=== PATIENT | female | born 1980 | race Caucasian/White ===

== ENCOUNTER 2019-02-05 15:26 | Observation (INO) | payer BC ==
[~2019-02-05] VITALS: Ht 160 cm; Wt 53.6 kg
[~2019-02-05 15:26] MED LIST: vancomycin 250MG/10ML UD oral solution 10ML BOTTLE PO ONE
[2019-02-05] MEDS ORDERED: ondansetron/PF 4mg/2ml inj IV ONE ×2 (16:00→17:55)
[2019-02-05] MEDS ORDERED: normal saline 1000ML IV soln IVB ONE ×2 (16:00→17:55)
[2019-02-05 17:08] LABS: BASOPHILS % (AUTO) 0.2 % (0-1); EOSINOPHILS % (AUTO) 0.2 % (0-6); HEMATOCRIT 36.8 % (35.0-45.0); HEMOGLOBIN 12.7 g/dl (12.0-16.0); LYMPHOCYTES # (AUTO) 0.7 X10'3 (1.1-4.8); LYMPHOCYTES % (AUTO) 4.5 % (21-51); MEAN CORPUSCULAR HEMOGLOBIN 33.2 PG (27.0-31.0); MEAN CORPUSCULAR HGB CONC 34.4 g/dL (33.0-36.5); MEAN CORPUSCULAR VOLUME 96.6 FL (78-98); MEAN PLATELET VOLUME 8.9 FL (7.4-10.4); MONOCYTES # (AUTO) 1.4 X10'3 (0-0.9); MONOCYTES % (AUTO) 9.4 % (2-12); NEUTROPHILS # (AUTO) 12.7 X10'3 (1.8-7.7); NEUTROPHILS % (AUTO) 85.7 % (42-75); PLATELET COUNT 275 X10'3 (140-440); RED BLOOD COUNT 3.81 X10'6 (4.20-5.60); RED CELL DISTRIBUTION WIDTH 11.9 % (11.5-14.5); WHITE BLOOD COUNT 14.8 X10'3 (4.5-11.0)
[2019-02-05 17:17] LABS: ALANINE AMINOTRANSFERASE 32 U/L (12-78); ALBUMIN 3.5 G/DL (3.4-5.0); ALKALINE PHOSPHATASE 85 IU/L (46-116); ANION GAP 11 (8-16); ASPARTATE AMINO TRANSFERASE 20 U/L (10-37); BILIRUBIN,TOTAL 1.3 MG/DL (0.1-1.0); BLOOD UREA NITROGEN 9 MG/DL (7-18); CALCIUM 7.9 MG/DL (8.5-10.1); CHLORIDE 99 MMOL/L (99-107); CREATININE 0.82 MG/DL (0.40-0.90); GLUCOSE 133 MG/DL (70-104); LIPASE 81 U/L (73-393); POTASSIUM 3.9 MMOL/L (3.5-5.1); SODIUM 132 MMOL/L (135-145); TOTAL CARBON DIOXIDE 22.3 MMOL/L (24-32); TOTAL PROTEIN 6.9 G/DL (6.4-8.2); eGFR 78 ML/MIN
[2019-02-05] MEDS ORDERED: acetaminophen 325mg tablet PO ONE (17:55)
[2019-02-05] MEDS ORDERED: normal saline 1000ML IV soln IV ONE (18:55)
[2019-02-05] MEDS ORDERED: NO HOME MEDS (19:18)
[2019-02-05 19:20] LABS: CLARITY,URINE CLEAR (Clear); COLOR,URINE STRAW (Yellow); GLUCOSE, URINE NEGATIVE (Neg); KETONES,URINE NEGATIVE (Neg); LEUKOCYTE ESTERASE ,URINE NEGATIVE (Neg); NITRITES, URINE NEGATIVE (Neg); OCCULT BLOOD,URINE NEGATIVE (Neg); PROTEIN,URINE NEGATIVE (Neg); UROBILINOGEN,URINE 0.2 E.U/dL (0.2-1.0)
[2019-02-05 19:21] LABS: URINE HCG NEGATIVE (NEG)
[2019-02-05 19:24] LABS: UA COLLECTION TYPE CLN CATCH MIDSTREAM
--- NOTE | 2019-02-05 19:28 | NUR ---
LAB AT BEDSIDE FOR SECOND CULTURE
--- NOTE | 2019-02-05 19:40 | NUR ---
PT TO CT VIA WHEELCHAIR
[2019-02-05] MEDS ORDERED: vancomycin 250MG/10ML UD oral solution 10ML BOTTLE PO ONE (21:15)
[2019-02-05] MEDS ORDERED: magnesium hydroxide 30ml (MOM) UD suspension PO PRN (21:55)
[2019-02-05] MEDS ORDERED: acetaminophen 325mg tablet PO PRN (21:55)
--- NOTE | 2019-02-05 22:28 | NUR ---
Report received from Maryjo in the ER. Pt arrived on the unit via wheelchair. Pt ambulatory and able to transfer to bed by foot. VSS. Sister at bedside. Pt has no signs of distress, will continue to monitor.
[2019-02-05] MEDS: normal saline 1000ml 1,000 ML IV SCH (23:35)
[2019-02-05 23:46] VITALS: BP 107/70
[2019-02-06] MEDS: vancomycin 250MG/10ML UD oral solution 10ML BOTTLE PO SCH ×2 (02:59→08:52)
[2019-02-06 06:00] VITALS: BP 91/54
--- NOTE | 2019-02-06 06:50 | NUR ---
Problems reprioritized. Patient report given, questions answered & plan of care reviewed with Madyson VEGA.
[2019-02-06 07:10] LABS: BASOPHILS % (AUTO) 0.3 % (0-1); EOSINOPHILS # (AUTO) 0.2 X10'3 (0-0.9); EOSINOPHILS % (AUTO) 1.3 % (0-6); HEMATOCRIT 31.2 % (35.0-45.0); HEMOGLOBIN 10.8 g/dl (12.0-16.0); LYMPHOCYTES # (AUTO) 1.8 X10'3 (1.1-4.8); LYMPHOCYTES % (AUTO) 14.2 % (21-51); MEAN CORPUSCULAR HEMOGLOBIN 33.3 PG (27.0-31.0); MEAN CORPUSCULAR HGB CONC 34.6 g/dL (33.0-36.5); MEAN CORPUSCULAR VOLUME 96.4 FL (78-98); MEAN PLATELET VOLUME 9.2 FL (7.4-10.4); MONOCYTES # (AUTO) 1.6 X10'3 (0-0.9); MONOCYTES % (AUTO) 13.2 % (2-12); NEUTROPHILS # (AUTO) 8.9 X10'3 (1.8-7.7); PLATELET COUNT 225 X10'3 (140-440); RED BLOOD COUNT 3.24 X10'6 (4.20-5.60); RED CELL DISTRIBUTION WIDTH 12.1 % (11.5-14.5); WHITE BLOOD COUNT 12.5 X10'3 (4.5-11.0)
[2019-02-06 07:40] LABS: ALANINE AMINOTRANSFERASE 26 U/L (12-78); ALBUMIN 2.5 G/DL (3.4-5.0); ALBUMIN/GLOBULIN RATIO 0.9 (1.1-1.5); ANION GAP 10 (8-16); ASPARTATE AMINO TRANSFERASE 18 U/L (10-37); BILIRUBIN,TOTAL 0.8 MG/DL (0.1-1.0); BLOOD UREA NITROGEN 4 MG/DL (7-18); BUN/CREATININE RATIO 6.1 (6.6-38.0); CALCIUM 7.3 MG/DL (8.5-10.1); CHLORIDE 114 MMOL/L (99-107); CREATININE 0.66 MG/DL (0.40-0.90); GLUCOSE 86 MG/DL (70-104); SODIUM 144 MMOL/L (135-145); TOTAL PROTEIN 5.3 G/DL (6.4-8.2); eGFR > 90 ML/MIN
[2019-02-06] MEDS: normal saline 1000ml 1,000 ML IV SCH (07:53)
[2019-02-06 07:56] LABS: ALKALINE PHOSPHATASE 64 IU/L (46-116)
[2019-02-06] MEDS ORDERED: potassium Cl 20 mEq SR tablet PO PRN ×2 (08:50)
[2019-02-06] MEDS ORDERED: potassium CL 10mEq/100ml bag 100 ML IV PRN ×2 (08:50)
[2019-02-06] MEDS ORDERED: K and/or MAG REPLACEMENT MC SCH (09:00)
[2019-02-06 09:18] LABS: C DIFF ANTIGEN POSITIVE (NEGATIVE); C DIFF SPECIMEN=DIARRHEA? ACCEPTABLE; C DIFFICILE TOXINS A&B POSITIVE (Neg)
[2019-02-06 10:00] VITALS: BP 92/60
--- NOTE | 2019-02-06 10:15 | NUR ---
AND I IN ROOM, EDUCATING PATIENT AND SISTER REGARDING C-DIFF. PATIENT EAGER TO LEAVE AND GO HOME AND TAKE CARE OF HERSELF. PATIENT D/C SIGNED PAPERS AND LEFT WITH NO EDUCATION BUT VERBAL.
[2019-02-06] MEDS ORDERED: VANC250C12 PO (10:33)
--- NOTE | 2019-02-06 13:28 | NUR ---
LATE ENTRY: PATIENT REFUSED MRSA SWAB
== END 2019-02-06 11:00 | disposition home or self-care (01) ==
LOC: ER 15:27 → ORTHO 4S 22:37
PROVIDERS: ADMIT Internal Medicine; ATTEND Family Medicine
DX: A04.72 Enterocolitis due to Clostridium difficile, not specified as recurrent (principal); E86.0 Dehydration; E87.6 Hypokalemia; E87.1 Hypo-osmolality and hyponatremia; R74.0 Nonspecific elevation of levels of transaminase and lactic acid dehydrogenase [LDH]; R19.7 Diarrhea, unspecified; R55 Syncope and collapse; L03.211 Cellulitis of face
CPT/HCPCS: 36415; 74176; 80053; 81003; 81025; 82948; 83605; 83690; 84145; 85025; 87040; 87324; 87449; 93005; 96360; 96361; 99284; G0378; J2405; J7030